=== PATIENT | female | born 2005 | race Two or more races ===

== ENCOUNTER 2025-08-11 22:30 | Emergency (ER) | payer MEDICAID, SELFPAY ==
[2025-08-11 22:32] VITALS: BMI 25.7
[2025-08-11 23:06] VITALS: BP 111/78; PULSE 93; RESP 18; TEMP 36.8; O2SAT 99
--- NOTE | 2025-08-11 23:13 | EKG_ITS ---
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
--- NOTE | 2025-08-11 23:13 | XR_ITS ---
EXAMINATION: PA lateral chest 2 views TECHNIQUE: Upright PA lateral chest 2 views Date and time: August 11, 2025, 1112 hours INDICATIONS: Coughing beginning 3 days ago chest pain FINDINGS: Normal heart size Lungs are clear. The Armond structures are intact IMPRESSION: No active disease
--- NOTE | 2025-08-11 23:15 | PD.EDCHEST ---
ED Chest Pain RME/HPI General Chief Complaint: Shortness of Breath/Dyspnea Stated Complaint: SOB, COUGH, CHEST PAIN Time Seen by Provider: 08/11/25 22:32 Source: patient, RN notes reviewed and old records reviewed Arrival date/time: 08/11/25 22:30 Mode of arrival: ambulatory Limitations: no limitations RME / HPI RME / HPI narrative: 19yof presents to ED for burning epigastric/mid?chest pain that initiated tonight while eating dinner. Patient reports mild congestion, cough the past 2 days. Patient states she has been vaping since February and concerned her lungs have collapsed. No fever, nausea/vomiting or urinary symptoms reported. 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 Previous Rx's ?Medication ?Instructions ?Recorded benzonatate 200 mg capsule 200 mg PO TID PRN cough #20 caps 08/12/25 famotidine 40 mg tablet (Pepcid) 40 mg PO QDAY #20 tabs 08/12/25 Allergies Allergy/AdvReac Type Severity Reaction Status Date / Time No Known Allergies Allergy Verified 08/11/25 22:31 Review of Systems Review of Systems Systems Reviewed: All systems reviewed, normal except as documented Constitutional Constitutional: Denies chills and Denies fever(s) ENT Ears, Nose, Mouth, and Throat: Denies dizziness Cardiovascular Cardiovascular: Reports chest pain, Reports dyspnea and Denies syncope Respiratory Respiratory: Reports cough and Reports dyspnea Gastrointestinal Gastrointestinal: Reports abdominal pain, Denies loose stools, Denies nausea and Denies vomiting Neurologic Neurologic: Denies dizziness and Denies syncope Past Medical History Surgical History OTHER SURGICAL HX: denies pshx Social History SMOKING STATUS: Current every day smoker (vaping since February) SUBSTANCE USE: does not use ALCOHOL: Never Past Medical History Comments PMH COMMENT: denies pmhx ED Exam General Limitations: Present no limitations General appearance: Present alert and in no apparent distress Head Head exam: Present atraumatic and normocephalic Eye Eye exam: Present normal appearance, PERRL and EOMI ENT ENT exam: Present normal exam and mucous membranes moist Neck Neck exam: Present normal inspection and full ROM Chest Chest inspection: Present normal inspection and symmetric chest wall rise Respiratory Respiratory exam: Present normal lung sounds bilaterally; Absent respiratory distress Cardiovascular Cardiovascular exam: Present regular rate and normal rhythm Abdominal Exam Abdominal exam: Present soft; Absent distention, tenderness, guarding or rebound Extremities Exam Extremities exam: Present normal inspection and full ROM Neurological Exam Neurological exam: Present alert and oriented X3 Psychiatric Psychiatric exam: Present anxious Skin Skin exam: Present warm, dry and intact Course Quality Measures none Orders Category Date Time Status EKG (ED ONLY) *Do not use* NOW Care 08/11/25 23:14 Completed CXR2 [XR chest 2V] Stat Exams 08/11/25 23:13 Completed EKG (ED Only) Stat Exams 08/11/25 23:13 Draft Famotidine [Pepcid] Med 08/11/25 23:14 Discontinued 40 mg PO X1 ONE Ibuprofen Tab [Motrin Tab] Med 08/11/25 23:14 Discontinued 600 mg PO X1 ONE Vital Signs Vital signs: Vital Signs Temperature 98.2 F 08/11/25 23:06 Pulse Rate 93 08/11/25 23:06 Respiratory Rate 18 08/11/25 23:06 Blood Pressure 111/78 08/11/25 23:06 Pulse Oximetry (%) 99 08/11/25 23:06 Oxygen Delivery Method Room Air 08/11/25 23:06 PROCEDURES: EKG Interpretation #1: Date of EK08/11/25 Time of EK:23 Rate: 87 Interpretation: Interpreted by me EKG Impression: Normal sinus rhythm, No acute ST-T changes, No ectopy, No ischemic changes, Normal QRS, Normal intervals and Normal axis Chest Pain MDM Narrative MDM Narrative:: 19yof presents to ED for burning epigastric/mid?chest pain that initiated tonight while eating dinner. Patient reports mild congestion, cough the past 2 days. Patient states she has been vaping since February and concerned her lungs have collapsed. No fever, nausea/vomiting or urinary symptoms reported. 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 ED workup reassuring. Heart score not applicable. Recommended cessation of vaping. PCP follow-up as needed. Stable for discharge, RTED precautions given. Patient data External records reviewed:: None (No prior visits) Clinical information provided by:: patient Social determinants that could affect healthcare access:: other (specify) (Poor access to healthcare) Patient has the following chronic illnesses:: None How is presenting disease/condition affected by chronic disease/condition?: no chronic disease Evaluation data The following diagnostics were reviewed and interpreted by me:: radiology exam(s) and EKG tracing(s) Lab and/or radiology exams considered but not ordered:: None Interpretation Summary: CXR: No acute process per my read EKG shows normal sinus Medications / Prescriptions Medications or Prescriptions considered but not ordered:: No antibiotics recommended at this time Medication administrations:: Medication Administration History Discontinued Medications Famotidine (Famotidine 20 Mg Tablet) 40 mg PO X1 ONE Stop: 08/11/25 23:15 Last Admin: 08/11/25 23:30 Dose: 40 mg Documented By: LIDIA Ibuprofen (Ibuprofen Tab 600 Mg Tablet) 600 mg PO X1 ONE Stop: 08/11/25 23:15 Last Admin: 08/11/25 23:30 Dose: 600 mg Documented By: LIDIA Above medications administered in ED Consultations Consultation(s) initiated? (list below): No Diagnosis Chest Pain Differential Diagnosis: other (GERD, nonspecific chest pain, pneumothorax, bronchitis, pneumonia, URI) Most likely diagnosis given after review of the tests above:: GERD, cough Admission Indicated Admission indicated?: not indicated Admission Request Was there a request for admission?: No Disposition Plan Disposition Plan: Discharge Discharge Attestation Discharge Attestation: The patient and all family members were given an opportunity to ask questions and understood the discharge instructions. Discharge instructions specifically effects, indications for sooner follow up or return to the emergency department, and the expected course of current diagnosis. Patient condition: Stable Discharge Plan Plan Patient Disposition: HOME (Self Care) Patient condition on transfer: Stable Prescriptions/Referrals Prescriptions/Med Rec: New benzonatate 200 mg capsule 200 mg PO TID PRN (Reason: cough) Qty: 20 0RF famotidine [Pepcid] 40 mg tablet 40 mg PO QDAY Qty: 20 0RF Referrals: Chen Huerta [Primary Care Provider] - In 1 week Problem List Clinical Impression: Cough, Burning chest pain Patient/Caregiver Discharge Instructions Education Materials: ED GERD (Adult) Print Language: Bhutanese Stand Alone Forms: Bridgette Award Info., Work/School Release, Patient Portal Info Letter PA/YANIRA Supervising Physician LARISSA/YANIRA Supervising Physician: Allen
[2025-08-11] MEDS: FAMOTIDINE 20 MG TABLET 40 MG PO (23:30)
[2025-08-11] MEDS: IBUPROFEN TAB 600 MG TABLET PO (23:30)
== END 2025-08-12 00:39 | disposition home or self-care (01) ==
PROVIDERS: Emergency Provider Emergency Medicine; PCP Registered Nurse Community Health
DX: K21.9 Gastro-esophageal reflux disease without esophagitis (principal)
CPT/HCPCS: 71046; 93005; 99283; A9270